=== PATIENT | male | born 1985 | race Caucasian/White ===

== ENCOUNTER 2019-05-03 10:18 | Emergency (ER) | payer BC ==
[~2019-05-03] VITALS: Ht 182.9 cm; Wt 83.9 kg
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
[2019-05-03] MEDS ORDERED: Ketorolac 60mg Inj IM ONE (11:00)
--- NOTE | 2019-05-03 11:22 | NUR ---
ED Nurse Note: pt. refused pain medication. ERMD made aware
[2019-05-03] MEDS ORDERED: IBUPROFEN600 MG ORAL (11:38)
[2019-05-03] MEDS ORDERED: CYCLOBENZAPRINE10 MG ORAL (11:38)
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
--- NOTE | 2019-05-03 12:10 | NUR ---
ED Nurse Note: Patient sitting in bed, working on labtop. No facial grimacing or guarding noted.
--- NOTE | 2019-05-03 12:10 | NUR ---
Note bill in EDM - 05/03/19 at 1246 by EDILSON ED Nurse Note: Patient sitting in bed, working olabtop. No facial grimacing or guarding noted.
[2019-05-03 12:16] VITALS: BP 112/69
--- NOTE | 2019-05-03 12:17 | NUR ---
ER DISCHARGE NOTE: Patient is cleared to be discharged per ERMD, pt is aox4, on room air, with stable vital signs. pt was given dc and prescription instructions, pt was able to verbalize understanding, pt id band removed without complications. pt is able to ambulate with steady gait. pt took all belongings.
== END 2019-05-03 12:16 | disposition home or self-care (01) ==
LOC: EDBD 10:18 → EMR 11:38
DX: S39.012A Strain of muscle, fascia and tendon of lower back, initial encounter (principal); V43.62XA Car passenger injured in collision with other type car in traffic accident, initial encounter; Y92.410 Unspecified street and highway as the place of occurrence of the external cause
CPT/HCPCS: 72131; 99284